=== PATIENT | female | born 1990 | race Caucasian/White ===

== ENCOUNTER 2019-04-02 08:27 | Emergency (ER) | payer MEDICAID ==
[~2019-04-02] VITALS: Ht 170.2 cm; Wt 72.6 kg
[2019-04-02 08:39] VITALS: BP 130/77
--- NOTE | 2019-04-02 08:47 | NUR ---
29 Y/O F C/O ITCHING WELTS/RASH X3 MONTHS OVER HER ABDOMEN/BACK/ARMS, NONE ARE PRESENT TODAY. PT STATES THEY APPEAR IN THE MORNING, SHE TAKES BENEDRYL AND THEY ARE GONE BE THE EVENING. PT DENIES FEVER/CHILLS. PT SEATED IN THE CHAIR, STATES NOT IN ANY DISCOMFORT AT THIS TIME. MEDHX: NONE ALLERGIES: PENECILLIN
[2019-04-02 08:53] VITALS: BP 130/77
== END 2019-04-02 09:21 | disposition home or self-care (01) ==
LOC: MED 08:27
DX: L50.9 Urticaria, unspecified (principal); E78.5 Hyperlipidemia, unspecified
CPT/HCPCS: 99282

== ENCOUNTER 2019-05-06 14:17 | Emergency (ER) | payer MEDICAID ==
--- NOTE | 2019-05-06 14:48 | NUR ---
CALLED FOR ALICIA. NO ANSWER.
--- NOTE | 2019-05-06 15:00 | NUR ---
CALLED FOR ALICIA. NO ANSWER.
--- NOTE | 2019-05-06 15:09 | NUR ---
CALLED FOR TRIAGE. NO ANSWER. PT LEFT PRIOR TO TRIAGE. ADMITTING AND DR ADAMS NOTIFIED.
== END 2019-05-06 15:09 | disposition left against medical advice (07) ==
LOC: MED 14:17
DX: K13.0 Diseases of lips (principal); T50.995A Adverse effect of other drugs, medicaments and biological substances, initial encounter; Z53.21 Procedure and treatment not carried out due to patient leaving prior to being seen by health care provider

== ENCOUNTER 2020-11-16 14:14 | Emergency (ER) | payer MEDICAID, OTHER ==
[~2020-11-16] VITALS: Ht 170.2 cm; Wt 77.1 kg
[2020-11-16 14:28] VITALS: BP 126/82
--- NOTE | 2020-11-16 14:59 | NUR ---
30/F presents to ED with c/o toe pain. Patient states she hit her right foot 5th digit on her bed frame this morning and the pain has continued to worsen. Patient denies taking anything for pain prior to arrival to ED. No swelling or bruising noted to foot, ROM limited due to pain, pulses and sensation equal bilaterally.
[2020-11-16] MEDS ORDERED: IBUPROFEN 600 MG TAB PO ONE (15:15)
[2020-11-16] MEDS ORDERED: IBUP-2213 PO (15:24)
--- NOTE | 2020-11-16 15:36 | NUR ---
APPLIED LIANNE TAPE TO RIGHT LOWER 5TH DIGIT WITHOUT ANY ISSUES
[2020-11-16 15:39] VITALS: BP 126/82
== END 2020-11-16 15:40 | disposition home or self-care (01) ==
LOC: MED 14:14
DX: S92.911A Unspecified fracture of right toe(s), initial encounter for closed fracture (principal); R03.0 Elevated blood-pressure reading, without diagnosis of hypertension; W22.8XXA Striking against or struck by other objects, initial encounter; Y93.89 Activity, other specified; Y92.89 Other specified places as the place of occurrence of the external cause; Y99.8 Other external cause status
CPT/HCPCS: 73630; 99283

== ENCOUNTER 2023-02-02 12:57 | Emergency (ER) | payer OTHER ==
[~2023-02-02] VITALS: Ht 170.2 cm; Wt 79.8 kg
[~2023-02-02 12:57] MED LIST: BCP; IBUP-2213 PO
[2023-02-02 13:34] VITALS: BP 140/101; PULSE 66; RESP 18; TEMP 98.3; O2SAT 97
[2023-02-02] MEDS ORDERED: IBUP-2213 PO (15:07)
== END 2023-02-02 15:21 | disposition home or self-care (01) ==
LOC: MED 12:57
DX: S92.512A Displaced fracture of proximal phalanx of left lesser toe(s), initial encounter for closed fracture (principal); Z79.1 Long term (current) use of non-steroidal anti-inflammatories (NSAID); Z88.0 Allergy status to penicillin; W22.8XXA Striking against or struck by other objects, initial encounter; Y93.89 Activity, other specified; Y92.89 Other specified places as the place of occurrence of the external cause; Y99.8 Other external cause status
CPT/HCPCS: 73660; 99283

== ENCOUNTER 2023-06-02 14:29 | Emergency (ER) | payer OTHER ==
[~2023-06-02] VITALS: Ht 170.2 cm; Wt 81.6 kg
[2023-06-02 14:36] VITALS: BP 136/95; PULSE 67; RESP 16; TEMP 97.5; O2SAT 100
[2023-06-02] MEDS ORDERED: BACI-418 TP (15:12)
[2023-06-02] MEDS ORDERED: BACITRACIN OINT 500 UNITS/GM PKT TP ONE (15:15)
== END 2023-06-02 15:31 | disposition home or self-care (01) ==
LOC: MED 14:29
DX: S61.012A Laceration without foreign body of left thumb without damage to nail, initial encounter (principal); Z79.1 Long term (current) use of non-steroidal anti-inflammatories (NSAID); Z79.2 Long term (current) use of antibiotics; Z88.0 Allergy status to penicillin; W26.0XXA Contact with knife, initial encounter; Y93.89 Activity, other specified; Y92.89 Other specified places as the place of occurrence of the external cause; Y99.8 Other external cause status
CPT/HCPCS: 99282

== ENCOUNTER 2023-10-19 11:48 | Emergency (ER) | payer OTHER ==
[~2023-10-19] VITALS: Ht 170.2 cm; Wt 77.1 kg
[~2023-10-19 11:48] MED LIST changes: +BACI-418 TP
[2023-10-19 12:23] VITALS: BP 123/68; PULSE 68; RESP 18; TEMP 98; O2SAT 97
[2023-10-19] MEDS: KETOROLAC 30 MG/ML VIAL IM ONE (12:56)
[2023-10-19] MEDS: LIDOCAINE 5% 1 EA PATCH TP ONE (12:57)
[2023-10-19] MEDS ORDERED: LID5T TP (13:23)
[2023-10-19] MEDS ORDERED: METH4TAB1 PO (13:23)
[2023-10-19] MEDS ORDERED: ACET-8905 PO (13:23)
[2023-10-19 13:40] VITALS: BP 123/68; PULSE 68; RESP 18; TEMP 98; O2SAT 97
== END 2023-10-19 13:40 | disposition home or self-care (01) ==
LOC: MED 11:48
DX: S39.012A Strain of muscle, fascia and tendon of lower back, initial encounter (principal); M54.16 Radiculopathy, lumbar region; R31.9 Hematuria, unspecified; Z79.899 Other long term (current) drug therapy; Z88.0 Allergy status to penicillin; X58.XXXA Exposure to other specified factors, initial encounter; Y92.89 Other specified places as the place of occurrence of the external cause; Y93.89 Activity, other specified; Y99.8 Other external cause status
CPT/HCPCS: 81002; 81025; 96372; 99283; J1885